=== PATIENT | male | born 1985 | race Caucasian/White ===

== ENCOUNTER 2018-12-20 13:31 | Outpatient (CLI) | payer OTHER ==
[~2018-12-20 13:31] MED LIST: CATAFLAM50 MG PO; PERCOCET 5/3251 TAB PO; POLY119PG PO; RECTICARE30 GM TP; SEPTRA DS TABLE1 TAB PO
== END 2018-12-20 13:41 | disposition home or self-care (01) ==
LOC: RAD 13:31
DX: M79.642 Pain in left hand (principal); M79.641 Pain in right hand

== ENCOUNTER 2019-12-16 08:43 | Outpatient (CLI) | payer OTHER | END 2019-12-16 08:55 | disposition home or self-care (01) | LOC: SONOGRAMA 08:43 → MAMO-SONO 08:45 → SONOGRAMA 08:55 | DX: R39.192 Position dependent micturition (principal); R39.198 Other difficulties with micturition ==